=== PATIENT | female | born 1995 | race African-American/Black ===

== ENCOUNTER 2017-05-31 13:14 | Emergency (ER) | payer OTHER ==
[~2017-05-31] VITALS: Ht 162.6 cm; Wt 54.0 kg
[~2017-05-31 13:14] MED LIST: CYCL-331 PO; HYDR-971 PO; TRAM-48 PO
[2017-05-31 13:25] VITALS: BP 128/68
[2017-05-31 14:08] LABS: BILIRUBIN,URINE NEG (NEG); CLARITY,URINE HAZY; COLOR,URINE YELLOW; GLUCOSE,URINE NEG (NEG)
[2017-05-31 14:09] LABS: BACTERIA,URINE FEW /HPF (0-FEW); NITRITE,URINE NEG (NEG); SQUAMOUS EPITHELIAL CELL,UR FEW /LPF; UROBILINOGEN,URINE 2 mg/dL (0.2 mg/dL)
[2017-05-31] MEDS ORDERED: SULF1TAB24 PO (14:33)
[2017-05-31] MEDS ORDERED: PHEN100T82 PO (14:33)
--- NOTE | 2017-05-31 14:34 | PHYS DOC ---
General Chief Complaint: PAIN ON URINATION Stated Complaint: URINARY PROBLEMS Time Seen by MD: 13:17 Source: patient Exam Limitations: no limitations Problems: History of Present Illness Initial Comments Patient is 21 female who comes to the ED complaining of dysuria. Patient states that since Saturday she's had burning with urination, today she' s having lower abdominal discomfort consistent with prior UTIs. She denies fever chills sweats or myalgias no nausea vomiting no flank pain. No pre- arrival treatment, patient states there is no chance of . No other complaints. Timing/Duration: other Severity: moderate Modifying Factors: improves with other Associated Symptoms: other Allergies: Coded Allergies: No Known Drug Allergies (Unverified , 05/07/16) Past Medical History Medical History: no pertinent history Surgical History: no surgical history Social History Smoker: non-smoker Alcohol: none Drugs: none Review of Systems Constitutional: denies chills, denies fever Respiratory: denies cough, denies shortness of breath Cardiovascular: denies chest pain, denies palpitations Gastrointestinal: see HPI Genitourinary: see HPI Musculoskeletal: denies back pain, denies joint swelling, denies neck pain Psychiatric/Neurological: denies headache, denies numbness, denies paresthesia Physical Exam General Appearance: WD/WN, no apparent distress Ear, Nose, Throat: hearing grossly normal, normal ENT inspection Neck: non-tender, supple Respiratory: normal breath sounds, no respiratory distress Gastrointestinal: normal bowel sounds, soft (suprapubic tenderness without rebound guarding or mass negative Hess negative McBurney) Back: no CVA tenderness, no vertebral tenderness Extremities: non-tender, normal inspection 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 I discussed signs and symptoms to monitor and indications for urgent return. I discussed [id number] and prescription medications, patient's questions were answered to her satisfaction and she expressed agreement and understanding with the treatment plan. Departure Time of Disposition: 14:33 Disposition: 01 HOME, SELF-CARE Diagnosis: uti Condition: GOOD Patient Instructions: Urinary Tract Infection, [id number] Additional Instructions: Aggressive hydration to prevent dehydration. [id number] Tylenol as needed. Prescription: Bactrim DS, Pyridium Follow-up with your doctor in 7-10 days for recheck and urine culture results. Return to the ED with new or changing symptoms. LUCY HELTON DO May 31, 2017 14:34
[2017-05-31] MEDS ORDERED: PHENAZOPYRIDINE 100 MG TABLET. PO ONE (15:10)
== END 2017-05-31 14:56 | disposition home or self-care (01) ==
LOC: ER 13:14
DX: N39.0 Urinary tract infection, site not specified (principal); Z87.440 Personal history of urinary (tract) infections
CPT/HCPCS: 81001; 87086; 87186; 99284

== ENCOUNTER 2019-09-23 10:49 | Emergency (ER) | payer OTHER ==
[~2019-09-23] VITALS: Ht 162.6 cm; Wt 54.0 kg
[~2019-09-23 10:49] MED LIST changes: +HYDR-3165 PO; -HYDR-971 PO; +PHEN100T82 PO; +SULF1TAB24 PO
[2019-09-23 10:57] VITALS: BP 113/77
[2019-09-23] MEDS ORDERED: BENZ100C PO (11:06)
--- NOTE | 2019-09-23 11:06 | PHYS DOC ---
Past History Past Medical History: No Pertinent History Past Surgical History: No Surgical History Smoking: Less than 1pk/day Alcohol Use: None Drug Use: None Adult General Chief Complaint Chief Complaint: COUGH HPI HPI Patient is a 24-year-old female who presents to the emergency department for evaluation. She states she has had nasal congestion, sore throat, and a cough productive of clear sputum for the past 2 weeks. She states the cough kept her awake last night. She denies any otalgia, fevers, or significant difficulty breathing. She has not had any nausea, vomiting, or diarrhea. She denies possibility of . There are no alleviating or exacerbating factors to her symptoms. Review of Systems Review of Systems Constitutional: Denies fever or chills [] Eyes: Denies change in visual acuity, redness, or eye pain [] HENT: Reports nasal congestion and sore throat. Denies otalgia[] Respiratory: Denies shortness of breath [] GI: Denies abdominal pain, nausea, vomiting, bloody stools or diarrhea [] : Denies dysuria or hematuria [] Musculoskeletal: Denies back pain or joint pain [] Integument: Denies rash or skin lesions [] Neurologic: Denies headache, focal weakness or sensory changes [] Allergies Allergies Allergies Coded Allergies Type Severity Reaction Last Updated Verified No Known Drug Allergies 05/07/16 No Physical Exam Physical Exam PHYSICAL EXAM: CONSTITUTIONAL: Well developed, well nourished HEAD: normocephalic, atraumatic EENT: PERRL, EOMI. Conjunctivae normal color, sclerae non-icteric; moist mucous membranes. Tympanic membranes are normal bilaterally. Oropharynx is nonerythematous. NECK: Supple, non-tender; no meningismus. LUNGS: Lungs CTA, breathing even and unlabored. Normal air movement. HEART: Regular rate and rhythm, no murmur CHEST: No deformity; non-tender ABDOMEN: The abdomen is soft, and non-tender, no masses or bruits. EXTREM: Normal ROM; no deformity, no calf tenderness. Normal pulses palpable in all extremities. There is no pedal edema. SKIN: No rash; no diaphoresis NEURO: Alert; normal speech and cognition; CN's grossly intact; strength grossly intact without focal deficit. BACK: No CVA TTP. Current Patient Data Vital Signs Vital Signs Date Time Temp Pulse Resp B/P (MAP) Pulse Ox O2 Delivery O2 Flow Rate FiO2 09/23/19 10:57 98.6 105 18 113/77 (89) 100 Room Air EKG EKG [] Radiology/Procedures Radiology/Procedures ER physician preliminary chest x-ray interpretation: No acute disease.[] Course & Med Decision Making Course & Med Decision Making Pertinent Labs and Imaging studies reviewed. (See chart for details) []Rapid flu/strep negative. Patient remains stable. I discussed test results, the need for close follow-up, and return precautions. Dragon Disclaimer Dragon Disclaimer This electronic medical record was generated, in whole or in part, using a voice recognition dictation system. Departure Departure: Impression: Primary Impression: Upper respiratory infection Disposition: HOME, SELF-CARE Condition: STABLE Referrals: JITENDRA RAM (PCP) Patient Instructions: Upper Respiratory Infection, Adult, Viral Pharyngitis Scripts Benzonatate (TESSALON PERLE) 100 Mg Capsule 100 MG PO TID PRN for COUGH, #20 CAP Prov: GRETTA MCKEON MD 09/23/19 GRETTA MCKEON MD Sep 23, 2019 11:06
--- NOTE | 2019-09-23 11:23 | RAD ---
CHEST PA LATERAL History: Cough for 2 weeks. Heart size is not enlarged. No evidence of pneumothorax, pleural effusion or infiltrate. Bones appear grossly intact. IMPRESSION: No evidence of consolidating infiltrate. Electronically signed by: Tyron Botello MD (09/23/2019 11:21 AM) [id number]
[2019-09-23 11:55] LABS: INFLUENZA A PATIENT NEGATIVE (NEGATIVE); INFLUENZA B PATIENT NEGATIVE (NEGATIVE)
== END 2019-09-23 12:21 | disposition home or self-care (01) ==
LOC: ER 10:49
DX: J06.9 Acute upper respiratory infection, unspecified (principal); F17.200 Nicotine dependence, unspecified, uncomplicated
CPT/HCPCS: 71046; 87070; 87804; 87880; 99284

== ENCOUNTER 2020-03-02 22:27 | Emergency (ER) | payer OTHER ==
[~2020-03-02] VITALS: Ht 165.1 cm; Wt 51.5 kg
[~2020-03-02 22:27] MED LIST changes: +BENZ100C PO
[2020-03-02 22:43] VITALS: BP 117/82
[2020-03-02] MEDS ORDERED: HYDR-3165 PO (22:50)
[2020-03-02] MEDS ORDERED: AMOX1TAB61 PO (22:50)
--- NOTE | 2020-03-02 22:50 | PHYS DOC ---
Past History Past Medical History: No Pertinent History Past Surgical History: No Surgical History Smoking: Less than 1pk/day Alcohol Use: None Drug Use: None Adult General HPI HPI 2 days dental abscess Patient is a 24-year-old female who presents for 2-day history of dental abscess. Patient reports having history of these in the past requiring antibiotics, I&D's, and definitive dentist management. Patient denies any history of IV drug abuse but admits she was premature likely leading to her poor dental hygiene. Again, current episode was first reported 2 days ago. Reports inflammation, pain, and palpable fluctuant mass along lateral portion of gumline superior to tooth #4. Patient reports "popping"abscess yesterday evening with drainage of copious purulent material. Patient reports ongoing pain prompting her to seek emergent care at our ER today. Patient reports that her healthcare insurance has limited dental coverage which is why she sought care at our ER today. Denies any reportable fevers greater than 100.4, no COVID-19 contacts, no other constitutional symptoms at this time Review of Systems Review of Systems Fourteen body systems of review of systems have been reviewed. See HPI for pertinent positives and negative responses, other narayanan all other systems are negative, non-pertinent or non-contributory Allergies Allergies Allergies Coded Allergies Type Severity Reaction Last Updated Verified No Known Drug Allergies 05/07/16 No Physical Exam Physical Exam Constitutional: Well developed, well nourished, no acute distress, non-toxic appearance. [] HENT: Normocephalic, atraumatic, bilateral external ears normal, oropharynx moist, overall poor dental hygiene with numerous dental caries and several cavities. Classic appearance of dental abscess noted alongside lateral portion of gumline at tooth #4 on right superior gumline. Expressible white purulent material expressed, site exquisitely tender to palpation., external nose normal. [] Eyes: PERRLA, EOMI, conjunctiva normal, no discharge. [] Neck: Normal range of motion, no tenderness, supple, no stridor. [] Cardiovascular:Heart rate regular rhythm, no murmur [] Lungs & Thorax: Bilateral breath sounds clear to auscultation [] Abdomen: Bowel sounds normal, soft, no tenderness, no masses, no pulsatile masses. [] Skin: Warm, dry, no erythema, no rash. [] Back: No tenderness, no CVA tenderness. [] Extremities: No tenderness, no cyanosis, no clubbing, ROM intact, no edema. [] Neurologic: Alert and oriented X 3, normal motor function, normal sensory function, no focal deficits noted. [] Psychologic: Affect normal, judgement normal, mood normal. [] Current Patient Data Vital Signs Vital Signs Date Time Temp Pulse Resp B/P (MAP) Pulse Ox O2 Delivery O2 Flow Rate FiO2 03/02/20 23:11 16 97 Room Air 03/02/20 22:43 98.1 82 16 117/82 (94) 100 EKG EKG [] Radiology/Procedures Radiology/Procedures [] Course & Med Decision Making Course & Med Decision Making Patient seen on immediate ER arrival by myself after ambulating to fast track area without issue Airway patent, breathing unlabored, vital signs obtained and grossly non- concerning Comprehensive history and physical exam obtained, classic for dental abscess There is indication for p.o. antibiotics and narcotic pain medication at this time given clinical presentation Patient was given resources regarding local dentist schools that accept patients of all insurance and lack of insurance for emergent dental care needs, I believe she needs definitive evaluation and management by a dentist for her current condition Joint decision was made to discharge home with prescription for Augmentin for infection control and Kerrick 5s for as needed use for severe breakthrough pain. Risks and benefits of narcotic pain medication addressed and educated on, patient agreeable to receiving this medication Strict return precautions were discussed with good understanding by patient, all questions and concerns addressed prior to ER departure Patient to follow-up with PCP in upcoming 1 to 7 days and advised to follow-up with dentist within the next 72 hours for evaluation and definitive management Dragon Disclaimer Dragon Disclaimer This electronic medical record was generated, in whole or in part, using a voice recognition dictation system. Departure Departure: Impression: Primary Impression: Dental abscess Disposition: HOME/RESIDENCE PRIOR TO ADM Condition: STABLE Referrals: JITENDRA RAM (PCP) Patient Instructions: Acetaminophen; Oxycodone tablets, Amoxicillin; Clavulanic Acid tablets, Dental Abscess Scripts Amoxicillin/Potassium Clav (AUGMENTIN 875-125 TABLET) 1 Each Tablet 1 TAB PO BID for DENTAL ABSCESS for 7 Days, #13 TAB 0 Refills Prov: SERA LAWRENCE DO 03/02/20 Hydrocodone Bit/Acetaminophen (NORCO 5-325 TABLET) 1 Each Tablet 1 TAB PO PRN Q6HRS PRN for PAIN, #10 TAB 0 Refills Prov: SERA LAWRENCE DO 03/02/20 Justification of Admission: Justification of Admission: Justification of Admission Dx: N/A SERA LAWRENCE DO Mar 02, 2020 22:50
[2020-03-02] MEDS ORDERED: AMOXICILLIN/K CLAV 875/125MG TABLET. PO ONE (23:00)
[2020-03-02] MEDS ORDERED: HYDROcodone/APAP 5/325MG 1 TAB TABLET PO ONE (23:00)
== END 2020-03-02 23:10 | disposition home or self-care (01) ==
LOC: ER 22:27
DX: K04.7 Periapical abscess without sinus (principal); K02.9 Dental caries, unspecified; F17.200 Nicotine dependence, unspecified, uncomplicated
CPT/HCPCS: 99283

== ENCOUNTER 2020-08-21 13:04 | Emergency (ER) | payer OTHER ==
[~2020-08-21] VITALS: Ht 165.1 cm; Wt 51.5 kg
[~2020-08-21 13:04] MED LIST changes: +AMOX1TAB61 PO
[2020-08-21 13:11] VITALS: BP 116/67
--- NOTE | 2020-08-21 13:24 | PHYS DOC ---
Past History Past Medical History: No Pertinent History Past Surgical History: No Surgical History Smoking: Less than 1pk/day Alcohol Use: None Drug Use: None Adult General Chief Complaint Chief Complaint: DENTAL PROBLEM HPI HPI Patient is a 25-year-old female presents to the emergency department complaining that she broke 8 tooth bottom left posterior molar approximately a week and a half ago while eating popcorn. Patient states she bit down on a hard seat and felt her tooth break. Patient states she has been experiencing tooth pain since then. Patient reports she has a dental appointment at the [facility] in September. Patient states her pain is a 10/10 on a 1-10 pain scale. Patient denies any fever or chills, denies any numbness or tingling to her face or tongue. Patient denies any loss of taste or smell. Patient denies any throat pain. Patient denies neck pain. Patient denies any allergies to medications, patient states she takes no prescription medications at home. Patient denies any other physical complaints or physical concerns. Review of Systems Review of Systems 14 body systems of review of systems have been reviewed. See HPI for pertinent positives and negative responses, otherwise all other systems are negative, nonpertinent or noncontributory. Allergies Allergies Allergies Coded Allergies Type Severity Reaction Last Updated Verified No Known Drug Allergies 05/07/16 No Physical Exam Physical Exam Constitutional: Well developed, well nourished, no acute distress, non-toxic appearance. HENT: Normocephalic, atraumatic, bilateral external ears normal, oropharynx moist, no oral exudates, nose normal. No signs of deep tissue infection, oral cavity marked dental caries, broken teeth, patient's tooth #18 with spots of decay, no pulp or nerve visualized, surrounding gum tissue swollen without purulent drainage, erythematous. Normal sensation of the tongue and face. Eyes: PERRLA, EOMI, conjunctiva normal, no discharge. Neck: Normal range of motion, no tenderness, supple, no stridor. Cardiovascular:Heart rate regular rhythm, no murmur Lungs & Thorax: Bilateral breath sounds clear to auscultation Abdomen: Bowel sounds normal, soft, no tenderness, no masses, no pulsatile masses. Skin: Warm, dry, no erythema, no rash. Back: No tenderness, no CVA tenderness. Extremities: No tenderness, no cyanosis, no clubbing, ROM intact, no edema. Neurologic: Alert and oriented X 3, normal motor function, normal sensory fu nction, no focal deficits noted. Psychologic: Affect normal, judgement normal, mood normal. Current Patient Data Vital Signs Vital Signs Date Time Temp Pulse Resp B/P (MAP) Pulse Ox O2 Delivery O2 Flow Rate FiO2 08/21/20 13:11 97.8 86 16 116/67 (83) 98 Room Air EKG EKG [] Radiology/Procedures Radiology/Procedures [] Heart Score Risk Factors: Risk Factors: DM, Current or recent (<one month) smoker, HTN, HLP, family history of CAD, obesity. Risk Scores: Risk Factors: DM, Current or recent (<one month) smoker, HTN, HLP, family history of CAD, obesity. Course & Med Decision Making Course & Med Decision Making Pertinent Labs and Imaging studies reviewed. (See chart for details) 25-year-old female, vital signs reviewed, presents emergency department complaint of dental pain. Patient physical examination revealed marked dental caries, patient's specific tooth pain #18 and various stages of decay without visual elicitation of call for nerve, surrounding gum erythematous, swollen, without purulent drainage. Discussed findings with patient, will give IM Toradol, [place] in ER today. Will prescribe regimen of Augmentin, Naprosyn, Peridex dental rinse for at home use. Encourage patient to brush teeth, good oral hygiene, follow-up with primary care for ongoing dental pain, keep appointment with dentist, return to ER precautions or concerns, patient discharged home. Dragon Disclaimer Dragon Disclaimer This electronic medical record was generated, in whole or in part, using a voice recognition dictation system. Departure Departure: Impression: Primary Impression: Dental abscess Additional Impression: Dental caries Disposition: 01 DC HOME SELF CARE/HOMELESS Condition: GOOD Referrals: JITENDRA RAM (PCP) Patient Instructions: Dental Abscess, Dental Caries Additional Instructions: Take antibiotics as prescribed, use oral rinse twice a day swish and spit, use prescribed Naprosyn for pain control, follow-up with your primary care doctor for ongoing dental pain, keep your appointment with your dentist, return to the emergency department for worsening symptoms or other concerns. EMERGENCY DEPARTMENT GENERAL DISCHARGE INSTRUCTIONS Thank you for coming to [facility] (ED) today and trusting us with you care. We trust that you had a positivie experience in our Emergency Department. If you wish to speak to the department management, you may call the director at [phone]. YOUR FOLLOW UP INSTRUCTIONS ARE FOLLOWS: 1. Do you have a private Doctor? If you do not have a private doctor, please ask for a resource list of physicians or clinics that may be able to assist you with follow up care. 2. The Emergency Physician has interpreted your x-rays. The X-Ray specialist will also review them. If there is a change in the findings, you will be notified in 48 hours when at all possible. 3. A lab test or culture has been done, your results will be reviewed and you will be notified if you need a change in treatment. ADDITIONAL INSTRUCTIONS AND INFORMATION: 1. Your care today has been supervised by a physician who is specially trained in emergency care. Many problems require more than one evaluation for a complete diagnosis and treatment. We recommend that you schedule your follow up appointment as recommended to ensure complete treatment of you illness or injury. If you are unable to obtain follow up care and continue to have a problem, or if your condition worsens, we recommend that you return to the ED. 2. We are not able to safely determine your condition over the phone nor are we able to give sound medical advice over the phone. For these safety reasons, if you call for medical advice we will ask you to come to the ED for further evaluation. 3. If you have any questions regarding these discharge instructions please call the ED at [phone]. SAFETY INFORMATION: In the interest of safety, wellness, and injury prevention; we encourage you to wear your sealbelt, if you smoke; quite smoking, and we encourage family to use a protective helmet for bicycling and other sporting events that present an increased risk for head injury. IF YOUR SYMPTOMS WORSEN OR NEW SYMPTOMS DEVELOP, OR YOU HAVE CONCERNS ABOUT YOUR CONDITION; OR IF YOUR CONDITION WORSENS WHILE YOU ARE WAITING FOR YOUR FOLLOW UP APPOINTMENT; EITHER CONTACT YOUR PRIMARY CARE DOCTOR, THE PHYSICIAN WHOSE NAME AND NUMBER YOU WERE GIVEN, OR RETURN TO THE ED IMMEDIATELY. Scripts Amoxicillin/Potassium Clav (AUGMENTIN 875-125 TABLET) 1 Each Tablet 1 TAB PO BID for DENTAL INFECTION for 10 Days, #20 TAB 0 Refills Prov: KENDRA NJ APRN 08/21/20 Naproxen (NAPROSYN) 500 Mg Tablet 1 TAB PO BID for pain for 15 Days, #30 TAB 0 Refills Prov: KENDRA NJ APRN 08/21/20 Hydrogen Peroxide (PEROXYL DENTAL RINSE) 236 Ml Solution 236 ML MM BID for DENTAL CARIES, #1 MISC 0 Refills SWISH AND SPIT ORAL RINSE TWICE A DAY Prov: KENDRA NJ APRN 08/21/20 Problem Qualifiers KENDRA NJ APRN Aug 21, 2020 13:24
[2020-08-21] MEDS ORDERED: HYDROcodone/APAP 5/325MG 1 TAB TABLET PO ONE (13:30)
[2020-08-21] MEDS ORDERED: KETOROLAC 60 MG/2 ML VIAL. IM ONE (13:30)
[2020-08-21] MEDS ORDERED: AMOX1TAB61 PO (13:42)
[2020-08-21] MEDS ORDERED: HYDR236S MM (13:42)
[2020-08-21] MEDS ORDERED: NAPR-683 PO (13:42)
== END 2020-08-21 14:00 | disposition home or self-care (01) ==
LOC: ER 13:04
DX: K04.7 Periapical abscess without sinus (principal); K02.9 Dental caries, unspecified; F17.200 Nicotine dependence, unspecified, uncomplicated
CPT/HCPCS: 96372; 99283; J1885